=== PATIENT | male | born 1935 | race Caucasian/White ===

== ENCOUNTER → 2022-02-24 13:12 | Outpatient (CLI) | payer MEDICARE, OTHER, SELFPAY ==
--- NOTE | 2022-02-24 13:16 | DI.MRI.S_ITS ---
PROCEDURE: MR PELVIS WO/W CON INDICATIONS: Abnormal prostate TECHNIQUE: Coronal HASTE, axial T1 FSE with fat saturation, 3-plane nonbreath-hold T2 FSE. After the administration of contrast, dynamic axial, delayed axial and coronal VIBE or 2-D FLASH with fat saturation through the pelvis. Optional diffusion weighted imaging and ADC may be performed. COMPARISON: [facility], RG, CT ABDOMEN/PELVIS WITHOUT CONTRAST, 02/03/2022, 18:16. Outside Film, CT, CT ABDOMEN PELVIS WITHOUT CONTRAST, 02/03/2022, 18:16. FINDINGS: Image quality: Diffusion weighted and dynamic contrast enhanced images are diagnostic. Prostate: Gland size is 5.3 x 5.1 x 5.2 cm; ellipsoid gland volume is 73 mL. A TURP defect is present. Lesion #1: Size: 1.5 x 1.2 cm Location: Left anterior transition zone, base-mid gland (series 4, image 12) T2 signal: Mostly in capsulated hypointense nodule DWI/ADC signal: Marked ADC hypointensity with corresponding marked DWI hyperintensity. DCE: Positive [place]: No large volume bulky extraprostatic extension. However there is long segment abutment of the lesion against the prostate pseudocapsule, difficult to exclude early extraprostatic extension. Seminal vesicle invasion: Absent PI-RADS: T2 signal - 2; ADC - 5; DCE - positive; Overall score: PI-RADS 3. Genitourinary system: Bladder wall appears trabeculated. Distal ureters are non distended. Bowel and peritoneum: No pathologic free pelvic fluid. Inferior colon and small bowel loops are normal in caliber. Sigmoid colonic diverticulosis. Nodes and vessels: No pelvic or inguinal adenopathy by size criteria. Iliac vessels are normal in caliber. Bones: No definite suspicious lesion identified. IMPRESSION: 1. A 1.5 cm lesion at the left anterior transition zone, base-mid gland, has an appearance on T2 weighted images suggestive of a BPH nodule. However, given presence of marked ADC/DWI signal abnormality, the finding is consistent with PI-RADS Category 3. 2. No suspicious lymph nodes visualized in the imaged pelvis. Dictated by: Jayden Charles M.D. on 02/24/2022 at 17:37 Approved by: Jayden Charles M.D. on 02/24/2022 at 18:01
== END ==
PROVIDERS: PCP Student in an Organized Health Care Education/Training Program; Referring Provider Specialist; Visit Provider Specialist
DX: N40.3 Nodular prostate with lower urinary tract symptoms (principal); R97.20 Elevated prostate specific antigen [PSA]; N28.1 Cyst of kidney, acquired; R31.0 Gross hematuria
CPT/HCPCS: 51798; 52000; 72197; 76872; 81002; 99215; A9579

== ENCOUNTER → 2022-03-17 10:11 | Outpatient (CLI) | payer MEDICARE, OTHER, SELFPAY ==
[2022-03-17 11:20] LABS: Prostate Specific Antigen 16.4 ng/mL (0.10-4.00)
== END ==
PROVIDERS: PCP Student in an Organized Health Care Education/Training Program; Referring Provider Specialist; Visit Provider Specialist
DX: N40.3 Nodular prostate with lower urinary tract symptoms (principal); N28.1 Cyst of kidney, acquired; R97.20 Elevated prostate specific antigen [PSA]
CPT/HCPCS: 36415; 84153; 99214